=== PATIENT | female | born 1950 | race Caucasian/White ===

== ENCOUNTER → 2018-09-01 16:14 | Outpatient (CLI) | payer MEDICARE, BC, SELFPAY ==
--- NOTE | 2018-09-01 | DI.MRI.S_ITS ---
PROCEDURE: MR LUMBAR SPINE WO CON INDICATIONS: Lumbar Radiculopathy TECHNIQUE: Noncontrast sagittal T1 spin echo and T2 fast echo, sagittal STIR, axial T1 and T2 fast spin echo through the lumbar spine. In cases with scoliosis, additional coronal T2 fast spin echo may be performed. COMPARISON: None. FINDINGS: Image quality: Excellent. Alignment and Curvature: Grade 1 anterolisthesis is seen at the L4-L5. No associated pars defects are seen. Bone Marrow: Marrow is of normal overall signal. No acute vertebral body compression fractures. Scattered foci are seen, which are hyperintense on T1-weighted and T2-weighted imaging, which are most consistent with benign vertebral body hemangiomas. A non-acute Schmorl's node can be seen at the inferior endplate of T11. Spinal Cord: Conus medullaris terminates at the L1 level. Visualized cord demonstrates normal signal and size. Paraspinous Soft Tissues: No paravertebral masses. T12-L1: The disc height is well-preserved. Loss of disc signal is seen at this level. No neural foraminal or central canal narrowing can be seen. L1-L2: The disc height is well-preserved. Loss of disc signal is seen at this level. No significant neural foraminal narrowing is seen. The central canal narrowing is seen. L2-L3: The disc height is well-preserved. Loss of disc signal is seen at this level. Mild generalized disc bulge is seen. No significant neural foraminal narrowing is seen. Mild central canal narrowing is seen. L3-L4: The disc height is well-preserved. Loss of disc signal is seen at this level. [id number] generalized disc bulge is seen. There is mild to moderate right-sided and moderate left-sided facet hypertrophy seen. Minimal bilateral neural foraminal narrowing is seen. [id number] central canal narrowing is seen. L4-L5: Moderate loss of disc height is seen. Loss of disc signal is seen. Moderate generalized disc bulge is seen is seen. Prominent facet hypertrophy is seen. There is moderate bilateral neural foraminal narrowing seen. Moderate to severe central canal narrowing is seen at this level. L5-S1: Mild to moderate loss of disc height and disc signal are seen. Mild generalized disc bulge is seen. Mild facet joint hypertrophy is seen. No neural foraminal narrowing is seen. No significant central canal narrowing is seen. IMPRESSION: Multiple levels of lumbar spine degenerative change are seen, which are most prominent at the L4-L5 level. Dictated by: Brandon Banks M.D. on 09/01/2018 at 17:39 Approved by: Brandon Banks M.D. on 09/01/2018 at 17:43
[2018-09-01 18:02] LABS: Add Manual Diff / Slide Review NO; Basophils Absolute Auto 100 /uL (0-100); Basophils Percent Auto 0.8 % (0-2); Eosinophils Absolute Auto 100 /uL (0-450); Eosinophils Percent Auto 1.7 % (2-4); Hematocrit 39.4 % (36-46); Hemoglobin 13.1 g/dL (12.0-16.0); Lymphocytes Absolute Auto 2400 /uL (1100-4500); Mean Corpuscular HGB Conc 33.3 % (30-36); Mean Corpuscular Hemoglobin 30.7 PG (26-34); Mean Corpuscular Volume 92.1 fL (80-100); Monocytes Absolute Auto 800 /uL (0-900); Neutrophils Absolute Auto 4500 /uL (1500-7000); Neutrophils Percent Auto 57.5 % (50-75); Platelet Count 226 X10^3/uL (150-400); Red Blood Cell Count 4.28 X10^6/uL (4.0-5.2); Red Cell Distribution Width 14.2 % (11.6-14.8); White Blood Cell Count 7.8 X10^3/uL (4.5-11.0)
[2018-09-01 18:15] LABS: Alanine Aminotransferase 26 IU/L (9-52); Albumin 4.1 g/dL (3.5-5.0); Albumin Globulin Ratio 1.7 (1.0-2.8); Alkaline Phosphatase 80 U/L (38-126); Aspartate Aminotransferase 41 IU/L (14-36); BUN Creatinine Ratio 25.7 (6-22); Bilirubin Total 0.4 mg/dL (0.2-1.3); Blood Urea Nitrogen 18 mg/dL (7-17); Calcium 9.5 mg/dL (8.4-10.2); Carbon Dioxide 28 mmol/L (22-32); Chloride 103 mmol/L (98-107); Cholesterol 235 mg/dL (140-199); Estimated Glomerular Filt Rate > 60.0 mL/min (>60); Globulin 2.4 g/dL (1.7-4.1); Glucose 89 mg/dL (80-110); HDL Cholesterol 103 mg/dL (40-60); HEMOLYSIS < 15 (0-50); LDL Cholesterol Calculated 105 mg/dL (<100); Potassium 4.2 mmol/L (3.4-5.1); Sodium 139 mmol/L (137-145); Total Protein 6.5 g/dL (6.3-8.2); Triglycerides 136 mg/dL (35-150)
[2018-09-01 18:30] LABS: Vitamin D 25 Hydroxy (D3) 37.3 ng/mL (30.0-100.0)
[2018-09-01 18:34] LABS: Free T4, Direct Thyroxine 1.34 ng/dL (0.78-2.19)
[2018-09-03 15:25] LABS: Triiodothyronine T3 Total 99 ng/dL (76-181)
== END ==
PROVIDERS: Visit Provider Internal Medicine
DX: M47.26 Other spondylosis with radiculopathy, lumbar region (principal); M47.27 Other spondylosis with radiculopathy, lumbosacral region; E04.1 Nontoxic single thyroid nodule; M89.9 Disorder of bone, unspecified; E78.5 Hyperlipidemia, unspecified; I10 Essential (primary) hypertension
CPT/HCPCS: 36415; 72148; 80053; 80061; 82306; 84439; 84443; 84480; 85025

== ENCOUNTER → 2018-09-05 11:00 | Outpatient (CLI) | payer MEDICARE, BC, SELFPAY ==
--- NOTE | 2018-09-05 | DI.MG.S_ITS ---
BILATERAL DIGITAL SCREENING MAMMOGRAM 3D/2D WITH CAD: 09/05/2018 CLINICAL: Routine screening. Family history of breast cancer. Comparison is made to exams dated: 09/04/2017 mammogram, 09/06/2016 mammogram, and 09/06/2015 mammogram - [facility]. The tissue of both breasts is heterogeneously dense. This may lower the sensitivity of mammography. Current study was also evaluated with a Computer Aided Detection (CAD) system. A right axillary tail/axilla lymph node projecting oer the superior right breast at posterior depth is stable to comparison exam of 09/06/2015 after accounting for patient positioning. No significant masses, calcifications, or other findings are seen in either breast. There has been no significant interval change. IMPRESSION: NEGATIVE There is no mammographic evidence of malignancy. A 1 year screening mammogram is recommended. This exam was interpreted at Station ID: [id number]. NOTE: For mammograms, a report in lay terms will be sent to the patient. Approximately 15% of breast malignancies will not be visualized mammographically. In the management of a palpable breast mass, a negative mammogram must not discourage biopsy of a clinically suspicious lesion. Electronically Signed By: Fernandez Tobar M.D. ecl/:09/05/2018 12:10:41 letter sent: Normal Exam ACR BI-RADS Category 1: Negative [id number]
== END ==
PROVIDERS: PCP Internal Medicine; Visit Provider Internal Medicine
DX: Z12.31 Encounter for screening mammogram for malignant neoplasm of breast (principal); Z80.3 Family history of malignant neoplasm of breast
CPT/HCPCS: 77063; 77067